=== PATIENT | female | born 1940 | race Caucasian/White ===

== ENCOUNTER 2018-08-02 07:41 | Day surgery (SDC) | payer MEDICARE ==
[~2018-08-02] VITALS: Ht 157.5 cm; Wt 48.2 kg
[~2018-08-02 07:41] MED LIST: ALPR1 PO; AMLO5 PO; ASPI325 PO; ASPI81EC PO; Bystolic5 MG PO; CLOP75 PO; LEVSOD25 PO; LEVSOD75 PO; METO25ER PO; NIAC500ER PO; NITRSPRAY SL; Zofran Odt4 MG SL
[2018-08-02] MEDS ORDERED: ASCO500 (08:25)
[2018-08-02] MEDS ORDERED: Elemental Calc600 MG (08:25)
[2018-08-02] MEDS ORDERED: Isosorbide Mono30 MG (08:25)
[2018-08-02] MEDS ORDERED: DONA1500 MG (08:26)
[2018-08-02] MEDS ORDERED: BENADRYL25 MG (08:26)
[2018-08-02] MEDS ORDERED: LETR2.5 (08:27)
[2018-08-02] MEDS ORDERED: RISP2 (08:27)
[2018-08-02] MEDS ORDERED: Simvastatin10 MG (08:27)
[2018-08-02] MEDS ORDERED: PANT40 (08:27)
[2018-08-02] MEDS ORDERED: ERGO400 (08:28)
[2018-08-02] MEDS ORDERED: RISP.25 (08:28)
[2018-08-02] MEDS ORDERED: ADULT ASPIRIN R81 MG (08:28)
[2018-08-02] MEDS ORDERED: POLY500 (08:29)
[2018-08-02] MEDS ORDERED: COMPAZINE10 MG (08:29)
== END 2018-08-02 10:03 | disposition home or self-care (01) ==
LOC: ORSCSDS 07:41
PROVIDERS: Student in an Organized Health Care Education/Training Program
PROC: 0DB68ZX Excision of Stomach, Via Natural or Artificial Opening Endoscopic, Diagnostic (ICD-10-PCS; principal; 2018-08-02 09:15)
PROC: 0DB58ZX Excision of Esophagus, Via Natural or Artificial Opening Endoscopic, Diagnostic (ICD-10-PCS; principal; 2018-08-02 09:15)
PROC: 0DB88ZX Excision of Small Intestine, Via Natural or Artificial Opening Endoscopic, Diagnostic (ICD-10-PCS; principal; 2018-08-02 09:15)
DX: R11.0 Nausea (principal); K29.70 Gastritis, unspecified, without bleeding; K21.9 Gastro-esophageal reflux disease without esophagitis; K44.9 Diaphragmatic hernia without obstruction or gangrene; R63.4 Abnormal weight loss; I25.10 Atherosclerotic heart disease of native coronary artery without angina pectoris; I10 Essential (primary) hypertension; F41.9 Anxiety disorder, unspecified; E03.9 Hypothyroidism, unspecified; I25.2 Old myocardial infarction; Z79.01 Long term (current) use of anticoagulants; Z79.82 Long term (current) use of aspirin; Z79.899 Other long term (current) drug therapy
CPT/HCPCS: 88305; 88342; J0330; J1980; J2405; J7120